=== PATIENT | female | born 1985 | race Caucasian/White ===

== ENCOUNTER 2022-03-05 21:35 | Inpatient (IN) | payer OTHER ==
[~2022-03-05] VITALS: Ht 170.2 cm; Wt 101.6 kg
[2022-03-05] MEDS ORDERED: PNV1TABL5 PO (22:20)
[2022-03-05] MEDS ORDERED: ceFAZolin 2,000 MG VIAL ONE (22:45)
[2022-03-05] MEDS: LACTATED RINGERS 500 ML IV SCH (22:52)
[2022-03-05 22:57] LABS: BASOPHILS # (AUTO) 0.1 K/uL (0.00-0.22); BASOPHILS % (AUTO) 0.3 % (0.0-2.0); EOSINOPHILS % (AUTO) 0.2 % (0.0-4.0); HEMATOCRIT 39.2 % (36-48); LYMPHOCYTES # (AUTO) 1.6 K/uL (2.5-16.5); LYMPHOCYTES % (AUTO) 9.8 % (20.5-51.1); MEAN CORPUSCULAR HEMOGLOBIN 29 pg (27-31); MEAN CORPUSCULAR HGB CONC 33 g/dL (33-37); MEAN CORPUSCULAR VOLUME 88.1 fL (80-94); MONOCYTES # (AUTO) 0.5 K/uL (0.8-1.0); MONOCYTES % (AUTO) 3.2 % (1.7-9.3); NEUTROPHILS # (AUTO) 14.6 K/uL (1.8-7.7); NEUTROPHILS % (AUTO) 86.5 % (42.2-75.2); PLATELET COUNT (AUTO) 261 K/uL (140-450); RED BLOOD CELL COUNT(AUTO) 4.45 MIL/uL (4.20-5.40); RED CELL DISTRIBUTION WIDTH 13.5 % (11.6-13.7); WHITE BLOOD COUNT (AUTO) 16.9 K/uL (4.8-10.8)
[2022-03-05 23:04] VITALS: BP 119/75
[2022-03-05 23:56] LABS: ALBUMIN 2.5 g/dL (3.4-5.0); CREATININE 0.9 mg/dL (0.6-1.3); TOTAL BILIRUBIN 0.7 mg/dL (0.0-1.0)
[2022-03-06] MEDS: ACETAMINOPHEN 325 MG TAB PO PRN ×3 (00:01→11:46)
[2022-03-06] MEDS: LACTATED RINGERS 500 ML IV SCH ×5 (03:39→19:40)
[2022-03-06] MEDS ORDERED: ceFAZolin 2,000 MG VIAL ONE (06:28)
[2022-03-06] MEDS: ACETAMINOPHEN 325 MG TAB PO SCH ×2 (17:46→23:36)
[2022-03-07] MEDS ORDERED: ALUMINUM HYD/MAG/SIMETHICONE 30 ML UDC PO PRN (00:10)
[2022-03-07] MEDS ORDERED: ALUMINUM HYD/MAG/SIMETHICONE 30 ML UDC ONE (00:15)
[2022-03-07] MEDS: LACTATED RINGERS 500 ML IV SCH ×2 (01:23→06:57)
[2022-03-07] MEDS: ACETAMINOPHEN 325 MG TAB PO SCH ×2 (05:29→11:27)
[2022-03-07 09:36] LABS: BASOPHILS % (AUTO) 0.3 % (0.0-2.0); EOSINOPHILS # (AUTO) 0.2 K/uL (0-0.4); EOSINOPHILS % (AUTO) 1.6 % (0.0-4.0); HEMATOCRIT 35.3 % (36-48); HEMOGLOBIN 11.7 g/dL (12.0-16.0); LYMPHOCYTES # (AUTO) 1.7 K/uL (2.5-16.5); LYMPHOCYTES % (AUTO) 13.3 % (20.5-51.1); MEAN CORPUSCULAR HEMOGLOBIN 29 pg (27-31); MEAN CORPUSCULAR HGB CONC 33 g/dL (33-37); MEAN CORPUSCULAR VOLUME 88.3 fL (80-94); MONOCYTES # (AUTO) 0.5 K/uL (0.8-1.0); MONOCYTES % (AUTO) 3.5 % (1.7-9.3); NEUTROPHILS # (AUTO) 10.6 K/uL (1.8-7.7); NEUTROPHILS % (AUTO) 81.3 % (42.2-75.2); PLATELET COUNT (AUTO) 229 K/uL (140-450); RED BLOOD CELL COUNT(AUTO) 3.99 MIL/uL (4.20-5.40); RED CELL DISTRIBUTION WIDTH 13.6 % (11.6-13.7); WHITE BLOOD COUNT (AUTO) 13.1 K/uL (4.8-10.8)
[2022-03-07] MEDS ORDERED: ceFAZolin 2,000 MG VIAL ONE (14:21)
== END 2022-03-07 16:00 | disposition home or self-care (01) | DRG 833 ==
LOC: MFCC 21:35 → OBSVTOIN 22:33
PROVIDERS: ADMIT Obstetrics & Gynecology; ATTEND Obstetrics & Gynecology
DX: O23.03 Infections of kidney in pregnancy, third trimester (principal); Z3A.30 30 weeks gestation of pregnancy
CPT/HCPCS: 36415; 80053; 85025; 86886; 86900; 86901; J0690; J7060

== ENCOUNTER 2022-04-11 20:12 | Inpatient (IN) | payer OTHER ==
[~2022-04-11] VITALS: Ht 170.2 cm; Wt 107.5 kg
[2022-04-11 20:12] VITALS: BP 107/51
[~2022-04-11 20:12] MED LIST: PNV1TABL5 PO
--- NOTE | 2022-04-11 20:12 | NUR ---
PT [facility] ALS. TAKEN TO BED 2
--- NOTE | 2022-04-11 20:15 | NUR ---
Patient BIB ambulance, diaphoretic, tachycardic. Addendum: 04/12/22 at 0111 by [id number] Patient BIB ambulance, diaphoretic, tachycardic, 35 weeks .
[2022-04-11] MEDS ORDERED: NACL 0.9% 1,000 ML IV ONE ×2 (20:20→22:55)
[2022-04-11] MEDS ORDERED: ACETAMINOPHEN EXTRA STRENGTH 500 MG TAB PO ONE (20:20)
--- NOTE | 2022-04-11 21:00 | NUR ---
Patient resting comfortably in bed, watching videos on phone, no c/o pain or s/s of discomfort, chest rise and fall symmetrical.
--- NOTE | 2022-04-11 21:14 | NUR ---
Dr. Quispe examining patient.
[2022-04-11] MEDS ORDERED: NACL 0.9% 1,000 ML IV SCH (21:25)
[2022-04-11] MEDS ORDERED: cefTRIAXone 1,000 MG in DEXT 5% MINI-BAG PLUS 50 ML IV ONE (21:25)
[2022-04-11] MEDS ORDERED: cefTRIAXone 1,000 MG VIAL ONE (21:33)
[2022-04-11 22:01] LABS: HEMATOCRIT 34.3 % (36-48); HEMOGLOBIN 11.7 g/dL (12.0-16.0); MEAN CORPUSCULAR HEMOGLOBIN 29 pg (27-31); MEAN CORPUSCULAR HGB CONC 34 g/dL (33-37); MEAN CORPUSCULAR VOLUME 85.8 fL (80-94); PLATELET COUNT (AUTO) 249 K/uL (140-450); RED CELL DISTRIBUTION WIDTH 14.3 % (11.6-13.7)
[2022-04-11] MEDS ORDERED: DOPPLER MC ONE (22:06)
--- NOTE | 2022-04-11 22:10 | NUR ---
Patient resting comfortably in bed, watching videos on phone, no c/o pain or s/s of discomfort, chest rise and fall symmetrical.
[2022-04-11 22:27] LABS: LYMPHOCYTES % (MANUAL) 6 % (20-46); PROMYELOCYTES % 1 % (0-0)
[2022-04-11 22:38] LABS: ALBUMIN 2.1 g/dL (3.4-5.0); CARBON DIOXIDE 19.2 mmol/L (21-32); CREATININE 1.2 mg/dL (0.6-1.3); POTASSIUM 3.2 mmol/L (3.5-5.1); TOTAL BILIRUBIN 0.8 mg/dL (0.0-1.0)
[2022-04-11 22:40] LABS: APPEARANCE,URINE CLEAR (CLEAR); BILIRUBIN,URINE NEGATIVE (NEGATIVE); BLOOD, URINE 3+ (NEGATIVE); COLOR,URINE YELLOW (YELLOW); LEUKOCYTE ESTERASE ,URINE TRACE (NEGATIVE); NITRITE, URINE POSITIVE (NEGATIVE); UGLUCOSE NEGATIVE (NEGATIVE)
[2022-04-11 23:00] LABS: RBC,URINE >20 (MANY) /HPF (0-5)
[2022-04-11 23:01] LABS: YEAST,URINE Few /HPF (None Seen)
--- NOTE | 2022-04-11 23:05 | NUR ---
Patient resting comfortably in bed, watching videos on phone, no c/o pain or s/s of discomfort, chest rise and fall symmetrical.
[2022-04-11] MEDS ORDERED: POTASSIUM CHLORIDE 10 MEQ TABER PO PRN (23:35)
[2022-04-11] MEDS ORDERED: ONDANSETRON 4 MG/2 ML VIAL IVP PRN (23:35)
[2022-04-11] MEDS ORDERED: ACETAMINOPHEN 325 MG TAB PO PRN (23:35)
[2022-04-11] MEDS ORDERED: MAGNESIUM OXIDE 400 MG TAB PO PRN (23:35)
[2022-04-12] MEDS: NACL 0.9% 1,000 ML IV SCH ×2 (00:24→13:47)
--- NOTE | 2022-04-12 00:48 | NUR ---
Called Dr. Washington to inform him that patient already received 1GM Rocephen IV. Dr. Washington verbally acknowledged and instructed to call pharmacy to reschedule next dose. Called Kahlil at [facility], phone number . Kahlil at [facility] stated that "next Rocephin dose is retimed for 0800." Readback confirmed.
--- NOTE | 2022-04-12 00:53 | NUR ---
Patient resting comfortably in bed, watching videos on phone, no c/o pain or s/s of discomfort, chest rise and fall symmetrical.
--- NOTE | 2022-04-12 01:09 | NUR ---
Patient will be admitted to care of MARIAN ROONEY. Admited to TELE. Will go to room 107A. Belongings list completed. Report to tele MARIAN ROONEY, MARIAN ROONEY verbalized undestanding of report, no further questions.
[2022-04-12 01:14] VITALS: BP 76/44
--- NOTE | 2022-04-12 01:14 | NUR ---
RECEIVED ADMISSION REPORT FROM TARUN ROONEY, PATIENT WAS STABLE DURING THE TRANSFER TO THE UNIT. PATIENT ALERT AND ORIENTED X 4. PATIENT WAS SATURATION WAS AT 100% ON ROOM AIR. DENIES ANY PAIN/DISCOMFORT AT THIS TIME. PATIENT WAS ABLE TO EXPLAIN TO NURSING WHY SHE IS IN THE FACILITY. NO NOTED OPEN WOUND DURING HEAD TO TOE ASSESSMENT. PATIENT HAS NO MEDICAL HISTORY TO DOCUMENT OR NOTIFY. PATIENT WAS INFORMED OF WHY SHE WAS INT [facility] AND GIVEN ORIENTATION ON HER ROOM, BATHROOM, PHONE, VISITING HOURS, AND CALL LIGHT. CALL LIGHT IS WITHIN REACH FOR ALL ASSISTANCE. PATIENT UNDERSTOOD ANS AGREED. PATIENT'S BED WAS LOWERED TO THE LOWEST LEVEL FOR SAFETY. NURSING HAS SATISFIED ALL CURRENT NEEDS AT THIS TIME. [email or web address]
--- NOTE | 2022-04-12 01:15 | NUR ---
Patient's Plan of Care was discussed and reviewed with VIDA GUALLPA:
[2022-04-12] MEDS ORDERED: SODIUM CHLORIDE IV ONE ×2 (01:45)
--- NOTE | 2022-04-12 01:45 | NUR ---
GAVE NEW ORDERS BECAUSE OF LOW BLOOD PRESSURE OF 1500ML OF BOLUS TO ELEVATE BLOOD PRESSURE. [email or web address]
--- NOTE | 2022-04-12 02:24 | NUR ---
SARINA ROONEY FOR L&D DID HEART RATE ON PATIENT'S BABY AND NOTED AT 148. [email or web address]
--- NOTE | 2022-04-12 03:50 | NUR ---
PATIENT ALERT AND ORIENTED X 4. PATIENT ABLE TO USE THE RESTROOM. BOLUS STILL INFUSING. NO COMPLAINTS OF PAIN/DISCOMFORT. NO S/S OF RASPATORY DISTRESS. PATIENT CLAIMS TO STILL FEEL BABY MOVING. CALL LIGHT WITH IN REACH FOR SAFETY AND ADJUSTMENTS. [id number]
[2022-04-12 04:00] VITALS: BP 96/49
--- NOTE | 2022-04-12 05:28 | NUR ---
left message for KIKO RAMIRES md regarding patient blood pressure improving but still remains fairly low. Addendum: 04/12/22 at 0531 by Mallory Otoole LVN left message for about blood pressure improving but not the great length. patient complaining of hand tingling. no noted edema. [email or web address]
--- NOTE | 2022-04-12 07:04 | NUR ---
ENDORSED PATIENT TO RASHMI RN, PATIENT WAS STABLE AT THE CHANGE OF SHIFT. ENDORSED NEW ORDER FOR MEDICATION TO GET CARRIED OUT ONCE ONLY FOR LOW BLOOD PRESSURE. [email or web address]
[2022-04-12 07:06] LABS: BASOPHILS % (AUTO) 0.1 % (0.0-2.0); MEAN CORPUSCULAR HEMOGLOBIN 29 pg (27-31); MONOCYTES % (AUTO) 2.9 % (1.7-9.3)
[2022-04-12 07:17] LABS: HEMOGLOBIN 10.4 g/dL (12.0-16.0); LYMPHOCYTES % (AUTO) 4.4 % (20.5-51.1); MEAN CORPUSCULAR HGB CONC 34 g/dL (33-37); MEAN CORPUSCULAR VOLUME 86.8 fL (80-94); MONOCYTES # (AUTO) 0.6 K/uL (0.8-1.0); NEUTROPHILS # (AUTO) 20.5 K/uL (1.8-7.7); NEUTROPHILS % (AUTO) 92.6 % (42.2-75.2); PLATELET COUNT (AUTO) 238 K/uL (140-450); RED BLOOD CELL COUNT(AUTO) 3.57 MIL/uL (4.20-5.40); RED CELL DISTRIBUTION WIDTH 14.1 % (11.6-13.7); WHITE BLOOD COUNT (AUTO) 22.2 K/uL (4.8-10.8)
[2022-04-12] MEDS ORDERED: MIDODRINE 5 MG TAB PO SCH (07:19)
[2022-04-12 07:21] LABS: ANION GAP 14.6 (8-16); CARBON DIOXIDE 18.1 mmol/L (21-32); CREATININE 1.1 mg/dL (0.6-1.3); POTASSIUM 3.7 mmol/L (3.5-5.1)
[2022-04-12 08:00] VITALS: BP 99/55
--- NOTE | 2022-04-12 08:00 | NUR ---
RECEIVE ENDORSEMENT FROM PM SHIFT THAT PATIENT IS W/ 35 WEEKS WHO COMES FOR FEVER W/ CHILL. DIAGNOSIS W/ UTI. PIV AT L. HAND INFUSING NS @80ML/HR. SBP BELOW 100. WILL CONTINUE TO MONITOR.
--- NOTE | 2022-04-12 09:01 | NUR ---
PATIENT HAS BEEN SCREENED AND CATEGORIZED LOW NUTRITION RISK. PATIENT WILL BE SEEN WITHIN 7 DAYS OF ADMISSION. 04/18/22 REVIEWED BY LILLIAN CONROY RD
--- NOTE | 2022-04-12 10:45 | NUR ---
GIVEN ENDORSEMENT TO L&D NURSE WHILE PATIENT IS ABLE TO WALK FORM HER [facility] BED TO L&D PATIENT ROOM BED. PATIENT IS W/ 35 WEEKS WHO COMES FOR FEVER W/ CHILL. DIAGNOSIS W/ UTI. PIV AT L. HAND INFUSING NS @80ML/HR AND FIRST DOSE ANTIBIOTIC ROCEPHIN GIVEN.
[2022-04-12 13:29] VITALS: BP 112/66
== END 2022-04-12 17:08 | disposition home or self-care (01) | DRG 831 ==
LOC: MED 20:22 → MTU 23:37 → MFCC 04-12 10:39
PROVIDERS: ADMIT Student in an Organized Health Care Education/Training Program; ATTEND Student in an Organized Health Care Education/Training Program
DX: O98.813 Other maternal infectious and parasitic diseases complicating pregnancy, third trimester (principal); A41.9 Sepsis, unspecified organism; O23.43 Unspecified infection of urinary tract in pregnancy, third trimester; N39.0 Urinary tract infection, site not specified; O99.283 Endocrine, nutritional and metabolic diseases complicating pregnancy, third trimester; E87.6 Hypokalemia; E83.42 Hypomagnesemia; Z20.822 Contact with and (suspected) exposure to COVID-19; Z3A.35 35 weeks gestation of pregnancy
CPT/HCPCS: 36415; 80048; 80053; 81001; 83605; 83735; 85025; 87040; 87081; 87086; 93005; 96361; 96365; 99285; J0696; J7060

== ENCOUNTER 2022-05-14 12:47 | Observation (INO) | payer OTHER ==
[~2022-05-14] VITALS: Ht 170.2 cm; Wt 104.3 kg
== END 2022-05-14 15:58 | disposition home or self-care (01) ==
LOC: MLD 12:47
PROVIDERS: ADMIT Obstetrics & Gynecology; ATTEND Obstetrics & Gynecology
DX: O36.8130 Decreased fetal movements, third trimester, not applicable or unspecified (principal); Z3A.40 40 weeks gestation of pregnancy
CPT/HCPCS: 59025; 76819; 81000; G0378; G0379; Q0092

== ENCOUNTER 2022-05-16 11:29 | Inpatient (IN) | payer OTHER ==
[~2022-05-16] VITALS: Ht 170.2 cm; Wt 81.6 kg
[2022-05-16] MEDS ORDERED: LACTATED RINGERS 500 ML IV SCH (11:45)
[2022-05-16] MEDS ORDERED: METHYLERGONOVINE 0.2 MG/ML AMP IM PRN (11:45)
[2022-05-16] MEDS ORDERED: CARBOPROST 250 MCG/ML AMP IM PRN (11:45)
[2022-05-16] MEDS ORDERED: PRETAB PO (11:48)
[2022-05-16 12:17] VITALS: BP 135/92
[2022-05-16 12:26] LABS: APPEARANCE,URINE CLEAR (CLEAR); BILIRUBIN,URINE NEGATIVE (NEGATIVE); BLOOD, URINE TRACE-I (NEGATIVE); COLOR,URINE YELLOW (YELLOW); LEUKOCYTE ESTERASE ,URINE NEGATIVE (NEGATIVE); NITRITE, URINE NEGATIVE (NEGATIVE); UGLUCOSE NEGATIVE (NEGATIVE)
[2022-05-16 12:31] LABS: PROTHROMBIN TIME 9.8 secs (10.8-13.4)
[2022-05-16 12:33] LABS: ALBUMIN 2.5 g/dL (3.4-5.0); ANION GAP 14.2 (8-16); CARBON DIOXIDE 20.7 mmol/L (21-32); POTASSIUM 3.9 mmol/L (3.5-5.1); TOTAL BILIRUBIN 0.4 mg/dL (0.0-1.0)
[2022-05-16] MEDS: LACTATED RINGERS 1,000 ML IV SCH ×2 (12:38→18:35)
[2022-05-16 12:40] LABS: OTHER CASTS, URINE None Seen /LPF (None Seen); WBC,URINE 0-5 /HPF (0-5)
[2022-05-16 12:40] LABS: BARBITURATE, URINE NEGATIVE ng/ml (NEG <=200); BENZODIAZEPINE, URINE NEGATIVE ng/mL (NEG <=200); CANNABINOID, URINE NEGATIVE ng/mL (NEG <=50); COCAINE, URINE NEGATIVE ng/mL (NEG <=300); OPIATE, URINE NEGATIVE ng/mL (NEG <=2000); PHENCYCLIDINE SCREEN,URINE NEGATIVE ng/mL (NEG <=25)
[2022-05-16] MEDS ORDERED: MISOPROSTOL 25 MCG TAB ONE (12:43)
[2022-05-16 14:28] LABS: BASOPHILS % (AUTO) 0.3 % (0.0-2.0); EOSINOPHILS # (AUTO) 0.1 K/uL (0-0.4); HEMOGLOBIN 13.3 g/dL (12.0-16.0); LYMPHOCYTES # (AUTO) 2.6 K/uL (2.5-16.5); LYMPHOCYTES % (AUTO) 25.7 % (20.5-51.1); MEAN CORPUSCULAR HEMOGLOBIN 29 pg (27-31); MEAN CORPUSCULAR HGB CONC 34 g/dL (33-37); MEAN CORPUSCULAR VOLUME 84.8 fL (80-94); MONOCYTES # (AUTO) 0.5 K/uL (0.8-1.0); MONOCYTES % (AUTO) 4.5 % (1.7-9.3); NEUTROPHILS # (AUTO) 6.9 K/uL (1.8-7.7); NEUTROPHILS % (AUTO) 68.5 % (42.2-75.2); PLATELET COUNT (AUTO) 315 K/uL (140-450); RED CELL DISTRIBUTION WIDTH 15.1 % (11.6-13.7); WHITE BLOOD COUNT (AUTO) 10.1 K/uL (4.8-10.8)
[2022-05-16] MEDS: MISOPROSTOL 25 MCG TAB VG PRN ×2 (16:48→21:59)
[2022-05-17] MEDS ORDERED: NALBUPHINE 10 MG/ML AMP IVP PRN (02:15)
[2022-05-17] MEDS ORDERED: ONDANSETRON 4 MG/2 ML VIAL IVP PRN ×2 (02:15→17:25)
[2022-05-17] MEDS ORDERED: OXYTOCIN 20 UNITS in LACTATED RINGERS 1,000 ML IV SCH (02:15)
[2022-05-17] MEDS: LACTATED RINGERS 1,000 ML IV SCH ×2 (03:05→10:24)
[2022-05-17] MEDS: MISOPROSTOL 25 MCG TAB VG PRN ×2 (03:06→08:46)
--- NOTE | 2022-05-17 12:14 | NUR ---
PATIENT HAS BEEN SCREENED AND CATEGORIZED LOW NUTRITION RISK. PATIENT WILL BE SEEN WITHIN 7 DAYS OF ADMISSION. 05/23/[address]
[2022-05-17] MEDS ORDERED: CITRIC ACID/SODIUM CITRATE 30 ML UDC PO SCH (13:30)
[2022-05-17] MEDS ORDERED: DEXAMETHASONE 4 MG/ML VIAL ONE (16:00)
[2022-05-17] MEDS ORDERED: ePHEDrine 50 MG/ML VIAL ONE (16:00)
[2022-05-17] MEDS ORDERED: ceFAZolin 2,000 MG VIAL ONE (16:23)
[2022-05-17] MEDS ORDERED: MORPHINE PRES FREE 10 MG/10 ML AMP IV ONE (16:24)
[2022-05-17] MEDS ORDERED: fentaNYL citrate 0.05 MG/ML VIAL ONE (16:24)
[2022-05-17] MEDS ORDERED: METHYLERGONOVINE 0.2 MG/ML AMP IM PRN (16:45)
[2022-05-17] MEDS ORDERED: oxyCODONE/APAP 5/325 MG 1 TAB TAB PO PRN ×2 (16:45)
[2022-05-17] MEDS ORDERED: SIMETHICONE 80 MG TAB.CHEW PO PRN (16:45)
[2022-05-17] MEDS ORDERED: TEMAZEPAM 15 MG CAP PO PRN (16:45)
[2022-05-17] MEDS ORDERED: NALOXONE 0.4 MG/ML VIAL IVP PRN (17:25)
[2022-05-17] MEDS ORDERED: KETOROLAC 60 MG/2 ML VIAL IM PRN (17:25)
[2022-05-17] MEDS ORDERED: diphenhydrAMINE 50 MG/ML VIAL IVP PRN (17:25)
[2022-05-17] MEDS: OXYTOCIN 20 UNITS/LR PREMIX 1,000 ML IV ONE ×2 (17:47→18:47)
[2022-05-17] MEDS: DOCUSATE SOD/SENNA 50/8.6 MG 1 TAB PO SCH (21:00)
[2022-05-18] MEDS ORDERED: OXYTOCIN 20 UNITS/LR PREMIX 1,000 ML IV ONE ×2 (02:05→09:19)
[2022-05-18] MEDS: OXYTOCIN 20 UNITS in LACTATED RINGERS 1,000 ML IV SCH ×2 (02:14→10:00)
[2022-05-18 05:18] LABS: BASOPHILS % (AUTO) 0.1 % (0.0-2.0); HEMATOCRIT 35.6 % (36-48); LYMPHOCYTES # (AUTO) 2.5 K/uL (2.5-16.5); MEAN CORPUSCULAR HEMOGLOBIN 29 pg (27-31); MEAN CORPUSCULAR HGB CONC 34 g/dL (33-37); MEAN CORPUSCULAR VOLUME 84.5 fL (80-94); MONOCYTES # (AUTO) 0.7 K/uL (0.8-1.0); MONOCYTES % (AUTO) 4.3 % (1.7-9.3); NEUTROPHILS # (AUTO) 12.4 K/uL (1.8-7.7); NEUTROPHILS % (AUTO) 79.6 % (42.2-75.2); PLATELET COUNT (AUTO) 283 K/uL (140-450); RED BLOOD CELL COUNT(AUTO) 4.21 MIL/uL (4.20-5.40); RED CELL DISTRIBUTION WIDTH 15.1 % (11.6-13.7); WHITE BLOOD COUNT (AUTO) 15.6 K/uL (4.8-10.8)
[2022-05-18] MEDS: KETOROLAC 30 MG/ML VIAL IVP PRN ×2 (11:39→16:57)
[2022-05-18] MEDS ORDERED: CAMERA MC ONE (19:13)
[2022-05-18] MEDS: DOCUSATE SOD/SENNA 50/8.6 MG 1 TAB PO SCH (21:27)
[2022-05-18] MEDS: IBUPROFEN 800 MG TAB PO PRN (23:09)
[2022-05-19] MEDS: IBUPROFEN 800 MG TAB PO PRN ×2 (11:14→20:54)
[2022-05-19] MEDS ORDERED: oxyCODONE/APAP 5/325 MG 1 TAB TAB PO PRN ×2 (18:00→22:00)
[2022-05-19] MEDS ORDERED: CAMERA MC ONE (19:30)
[2022-05-19] MEDS: DOCUSATE SOD/SENNA 50/8.6 MG 1 TAB PO SCH (20:54)
[2022-05-20] MEDS: IBUPROFEN 800 MG TAB PO PRN (09:06)
== END 2022-05-20 16:40 | disposition home or self-care (01) | DRG 788 ==
LOC: MLD 11:29 → MFCC 05-17 19:00
PROVIDERS: ADMIT Obstetrics & Gynecology; ATTEND Obstetrics & Gynecology
PROC: 10D00Z1 Extraction of Products of Conception, Low, Open Approach (ICD-10-PCS; principal; 2022-05-17 16:30)
PROC: 3E0234Z Introduction of Serum, Toxoid and Vaccine into Muscle, Percutaneous Approach (ICD-10-PCS; 2022-05-18)
DX: O48.0 Post-term pregnancy (principal); Z3A.40 40 weeks gestation of pregnancy; Z37.0 Single live birth; Z20.822 Contact with and (suspected) exposure to COVID-19; O61.9 Failed induction of labor, unspecified
CPT/HCPCS: 36415; 59200; 80053; 80305; 81001; 85025; 85610; 85730; 86592; 86886; 86900; 86901; 90715; J1100; J1200; J1885; J2270; J2590; J3010; J7120